=== PATIENT | male | born 1950 | race Caucasian/White ===

== ENCOUNTER → 2016-07-11 | Outpatient (CLI) | payer MEDICARE, BC ==
[~2016-07-11] MED LIST: COLACE100 MG PO; DETROL2 MG PO; FLOMAX0.4 MG PO; NORCO 5-325 MG1 TAB PO; PEPCID OTC PO; TOPROL XL 5050 MG PO; VITAMIN D-40400 UNIT PO
== END | disposition disaster alternative care site (69) ==
LOC: GRAD 12:22
DX: N28.89 Other specified disorders of kidney and ureter (principal)